=== PATIENT | male | born 1960 | race Caucasian/White ===

== ENCOUNTER 2016-08-15 20:08 | Emergency (ER) | payer OTHER, BC ==
--- NOTE | ~2016-08-15 | ER ---
PATIENT'S NAME: SANDY RAI [facility] AGE: 56 Y [address] ROOM: [place] [address] LOCATION: [facility] ADMIT DATE: 08/15/2016 ER/Outpatient Report DISCHARGE DATE: 08/15/2016 FAMILY PHYSICIAN: Benjy Roberts MD ATTENDING PHYSICIAN: Jose De Jesus Wang I was contacted regarding an incidental finding of a lung nodule on this individual's CTs from last evening. I did speak with him on the phone today, and I informed him of the nodule. He needs followup in 6 months. No other questions or other issues. ALTAGRACIA MD DELORIS SMALL/maria antonia /[id number] d: 08/16/16 1309 t: 09/06/16 1653, OUTPATIENT REPORT
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
== END 2016-08-15 23:03 | disposition disaster alternative care site (69) ==
LOC: GACC 20:08
DX: S12.040A Displaced lateral mass fracture of first cervical vertebra, initial encounter for closed fracture (principal); S32.019A Unspecified fracture of first lumbar vertebra, initial encounter for closed fracture; S60.511A Abrasion of right hand, initial encounter; M48.02 Spinal stenosis, cervical region; M50.30 Other cervical disc degeneration, unspecified cervical region; M19.90 Unspecified osteoarthritis, unspecified site; I10 Essential (primary) hypertension; Z98.890 Other specified postprocedural states; V59.9XXA Occupant (driver) (passenger) of pick-up truck or van injured in unspecified traffic accident, initial encounter; Y92.488 Other paved roadways as the place of occurrence of the external cause

== ENCOUNTER → 2016-08-15 | Outpatient (CLI) | payer BC, OTHER | END | disposition disaster alternative care site (69) | LOC: GAMB 19:28 | DX: M54.2 Cervicalgia (principal); I10 Essential (primary) hypertension; G89.11 Acute pain due to trauma; V49.9XXA Car occupant (driver) (passenger) injured in unspecified traffic accident, initial encounter | CPT/HCPCS: A0425; A0429 ==

== ENCOUNTER → 2016-10-12 | Outpatient (CLI) | payer BC | END | disposition disaster alternative care site (69) | LOC: GRAD 10:46 | DX: S12.000D Unspecified displaced fracture of first cervical vertebra, subsequent encounter for fracture with routine healing (principal); M54.2 Cervicalgia; M47.892 Other spondylosis, cervical region; X58.XXXD Exposure to other specified factors, subsequent encounter ==